=== PATIENT | female | born 1955 | race Caucasian/White ===

== ENCOUNTER 2017-04-16 13:05 | Emergency (ER) | payer MEDICARE, OTHER ==
[~2017-04-16] VITALS: Ht 170.2 cm; Wt 89.0 kg
[~2017-04-16 13:05] MED LIST: ASPI-556 PO; GLIP5TAB11 PO; HYDR25TA PO; METF500T4 PO; PARO10OR3 PO
[2017-04-16] MEDS ORDERED: INSNOV SQ (13:21)
[2017-04-16] MEDS ORDERED: INSLAN SQ (13:21)
[2017-04-16] MEDS ORDERED: SODIUM CHLORIDE 0.9% 1,000 ML IV ONE (14:15)
[2017-04-16] MEDS ORDERED: CEPHALEXIN MONOHYDRATE 500 MG CAPSULE PO ONE (14:45)
[2017-04-16 14:59] LABS: BASOPHILS % (AUTO) 0.5 % (0.0-2.0); EOSINOPHILS % (AUTO) 1.4 % (1.0-6.0); HEMATOCRIT 40.6 % (36-46); LYMPHOCYTES # (AUTO) 3.4 K/uL (1.0-4.8); LYMPHOCYTES % (AUTO) 46.1 % (22.0-44.0); MEAN CORPUSCULAR HGB CONC 34.5 G/dL (31.0-37.0); MEAN CORPUSCULAR VOLUME 90 fL (80-100); MONOCYTES # (AUTO) 0.7 K/uL (0.1-1.0); MONOCYTES % (AUTO) 8.8 % (2.0-9.0); NEUTROPHILS # (AUTO) 3.2 K/uL (1.8-7.7); NEUTROPHILS % (AUTO) 43.2 % (40.0-70.0); PLATELET COUNT (AUTO) 158 K/uL (150-450); RED BLOOD CELL COUNT(AUTO) 4.51 MIL/uL (4.00-5.20); RED CELL DISTRIBUTION WIDTH 15.4 % (11.5-14.5); WHITE BLOOD COUNT (AUTO) 7.5 K/uL (4.5-11.0)
[2017-04-16 15:18] LABS: ANION GAP 6 mmol/L (8-16); CALCIUM, TOTAL 8.7 mg/dL (8.8-10.5); CARBON DIOXIDE 29 mmol/L (22-29); CHLORIDE 96 mmol/L (98-107); CREATININE 0.86 mg/dL (0.60-1.30); GLOMERULAR FILTR. RATE CALC > 60 mL/min (>60); POTASSIUM 4.5 mmol/L (3.5-5.1); SODIUM SERUM 131 mmol/L (136-145); UREA NITROGEN, BLOOD 12 mg/dL (7-18)
[2017-04-16] MEDS ORDERED: INSULIN REGULAR, HUMAN 100 UNITS/ML IVP ONE (16:45)
[2017-04-16 16:50] VITALS: BP 135/90
[2017-04-16 20:34] LABS: GLUCOSE COMMENT 2 Doctor Notified; GLUCOSE,POINT OF CARE 246 MG/DL (70-110)
[2017-04-16 20:34] LABS: GLUCOSE,POINT OF CARE 308 MG/DL (70-110)
[2017-04-17 09:04] LABS: GLUCOSE,POINT OF CARE 415 MG/DL (70-110)
== END 2017-04-16 17:29 | disposition home or self-care (01) ==
LOC: EMS 13:13
DX: L02.414 Cutaneous abscess of left upper limb (principal); E11.65 Type 2 diabetes mellitus with hyperglycemia; I10 Essential (primary) hypertension; F17.210 Nicotine dependence, cigarettes, uncomplicated; Z79.4 Long term (current) use of insulin; Z79.82 Long term (current) use of aspirin
CPT/HCPCS: 36415; 80048; 82962; 85025; 96374; 99285; J1815; J7030; 99284

== ENCOUNTER 2017-05-18 11:17 | Emergency (ER) | payer MEDICARE, OTHER ==
[~2017-05-18] VITALS: Ht 170.2 cm; Wt 86.4 kg
[~2017-05-18 11:17] MED LIST changes: -GLIP5TAB11 PO; +INSLAN SQ; +INSNOV SQ; -METF500T4 PO
[2017-05-18] MEDS ORDERED: ATOR20TA65 PO (11:46)
[2017-05-18] MEDS ORDERED: SITA100 PO (11:46)
[2017-05-18] MEDS ORDERED: LEVO25TA9 PO (11:46)
[2017-05-18] MEDS ORDERED: DULA0.75 SQ (11:46)
[2017-05-18] MEDS ORDERED: SPIR50 PO (11:46)
[2017-05-18 11:53] LABS: GLUCOSE,POINT OF CARE 300 MG/DL (70-110)
[2017-05-18 12:35] VITALS: BP 120/76
[2017-05-18 12:54] LABS: APPEARANCE,URINE CLOUDY (CLEAR); GLUCOSE, URINE (UA) >=1000 mg/dL (NEGATIVE); KETONES,URINE NEGATIVE (NEGATIVE); LEUKOCYTE ESTERASE ,URINE SMALL (NEGATIVE); OCCULT BLOOD,URINE NEGATIVE (NEGATIVE); PROTEIN,URINE TRACE (NEGATIVE)
[2017-05-18] MEDS ORDERED: PARO20TA24 PO (12:59)
[2017-05-18 13:00] LABS: ADD UA MICROSCOPIC YES
[2017-05-18] MEDS ORDERED: SODIUM CHLORIDE 0.9% 1,000 ML IV ONE (13:00)
[2017-05-18 13:02] LABS: RBC,URINE None Seen /HPF (0-2); SQUAMOUS EPITHELIAL CELL,UR Few /LPF (None Seen); WBC,URINE 51-100 /HPF (0-5)
[2017-05-18 13:42] LABS: GLUCOSE,POINT OF CARE 262 MG/DL (70-110)
== END 2017-05-18 14:04 | disposition home or self-care (01) ==
LOC: EMS 11:22
DX: N39.0 Urinary tract infection, site not specified (principal); E11.9 Type 2 diabetes mellitus without complications; I10 Essential (primary) hypertension; E03.9 Hypothyroidism, unspecified; F17.210 Nicotine dependence, cigarettes, uncomplicated
CPT/HCPCS: 82962; 87086; 99284; 99406

== ENCOUNTER 2018-04-18 02:19 | Emergency (ER) | payer MEDICARE, OTHER ==
[~2018-04-18] VITALS: Ht 170.2 cm; Wt 90.0 kg
[~2018-04-18 02:19] MED LIST changes: +ATOR20TA65 PO; +DULA0.75 SQ; +LEVO25TA9 PO; -PARO10OR3 PO; +PARO20TA24 PO; +SITA100 PO; +SPIR50 PO
[2018-04-18 02:34] LABS: GLUCOSE,POINT OF CARE 174 MG/DL (70-110)
[2018-04-18] MEDS ORDERED: OXYB5 PO (02:42)
[2018-04-18] MEDS ORDERED: GABA-531 PO (02:45)
[2018-04-18] MEDS ORDERED: LACT10SO75 PO (02:45)
[2018-04-18] MEDS ORDERED: DULA0.75 SQ (02:45)
[2018-04-18] MEDS ORDERED: AMLO5TAB66 PO (02:45)
[2018-04-18 03:55] LABS: BASOPHILS % (AUTO) 0.5 % (0.0-2.0); EOSINOPHILS % (AUTO) 1.9 % (1.0-6.0); HEMATOCRIT 40.9 % (36-46); HEMOGLOBIN 14.2 g/dL (12.0-16.0); LYMPHOCYTES # (AUTO) 3.8 K/uL (1.0-4.8); LYMPHOCYTES % (AUTO) 43.8 % (22.0-44.0); MEAN CORPUSCULAR HEMOGLOBIN 31.8 pg (26.0-34.0); MEAN CORPUSCULAR HGB CONC 34.8 G/dL (31.0-37.0); MEAN CORPUSCULAR VOLUME 92 fL (80-100); MONOCYTES # (AUTO) 0.8 K/uL (0.1-1.0); MONOCYTES % (AUTO) 9.2 % (2.0-9.0); NEUTROPHILS # (AUTO) 3.9 K/uL (1.8-7.7); NEUTROPHILS % (AUTO) 44.6 % (40.0-70.0); PLATELET COUNT (AUTO) 185 K/uL (150-450); RED BLOOD CELL COUNT(AUTO) 4.46 MIL/uL (4.00-5.20); RED CELL DISTRIBUTION WIDTH 13.5 % (11.5-14.5)
[2018-04-18 04:00] LABS: CALCIUM, TOTAL 9.5 mg/dL (8.8-10.5); CREATININE 0.97 mg/dL (0.60-1.30); POTASSIUM 4.1 mmol/L (3.5-5.1)
[2018-04-18 04:06] LABS: ALBUMIN 3.6 g/dL (3.4-5.0); BILIRUBIN,TOTAL 0.6 mg/dL (0.1-1.0); TOTAL PROTEIN, SERUM 7.7 g/dL (6.4-8.2)
[2018-04-18 04:22] LABS: APPEARANCE,URINE CLOUDY (CLEAR); BILIRUBIN,URINE NEGATIVE (NEGATIVE); GLUCOSE, URINE (UA) NEGATIVE (NEGATIVE); KETONES,URINE NEGATIVE (NEGATIVE); LEUKOCYTE ESTERASE ,URINE SMALL (NEGATIVE); NITRATE,URINE NEGATIVE (NEGATIVE); OCCULT BLOOD,URINE NEGATIVE (NEGATIVE); PROTEIN,URINE NEGATIVE (NEGATIVE)
[2018-04-18 04:32] LABS: BACTERIA,URINE Many /HPF (None Seen); RBC,URINE 0-2 /HPF (0-2); SQUAMOUS EPITHELIAL CELL,UR Many /LPF (None Seen)
[2018-04-18 05:59] VITALS: BP 126/88
[2018-04-18] MEDS ORDERED: CefTRIAXone SODIUM 1 GM in DEXTROSE 5%-WATER 10 ML IV ONE (06:30)
[2018-04-18] MEDS ORDERED: KETOROLAC TROMETHAMINE 30 MG/ML VIAL IVP ONE (06:30)
== END 2018-04-18 06:40 | disposition home or self-care (01) ==
LOC: EMS 02:20
DX: N39.0 Urinary tract infection, site not specified (principal); F32.9 Major depressive disorder, single episode, unspecified; E11.42 Type 2 diabetes mellitus with diabetic polyneuropathy; I10 Essential (primary) hypertension; E03.9 Hypothyroidism, unspecified; F17.210 Nicotine dependence, cigarettes, uncomplicated; Z86.718 Personal history of other venous thrombosis and embolism; Z98.890 Other specified postprocedural states; Z79.4 Long term (current) use of insulin; Z79.899 Other long term (current) drug therapy
CPT/HCPCS: 36415; 71045; 80053; 81001; 82962; 83690; 84484; 85025; 87086; 93005; 96374; 96375; 99285; J0696; J1885; J7060

== ENCOUNTER 2018-09-06 08:26 | Emergency (ER) | payer MEDICARE, OTHER ==
[~2018-09-06] VITALS: Ht 170.2 cm; Wt 91.4 kg
[~2018-09-06 08:26] MED LIST changes: +AMLO5TAB66 PO; -ASPI-556 PO; -ATOR20TA65 PO; +GABA-531 PO; -INSLAN SQ; +LACT10SO75 PO; +OXYB5 PO; -SITA100 PO; -SPIR50 PO
[2018-09-06 08:59] LABS: GLUCOSE,POINT OF CARE 199 MG/DL (70-110)
[2018-09-06] MEDS ORDERED: KETOROLAC TROMETHAMINE 30 MG/ML VIAL IM ONE (09:15)
[2018-09-06 09:51] VITALS: BP 135/81
== END 2018-09-06 09:58 | disposition home or self-care (01) ==
LOC: EMS 08:27
DX: M17.11 Unilateral primary osteoarthritis, right knee (principal); L03.115 Cellulitis of right lower limb; I10 Essential (primary) hypertension; E03.9 Hypothyroidism, unspecified; E11.9 Type 2 diabetes mellitus without complications; F32.9 Major depressive disorder, single episode, unspecified; F17.210 Nicotine dependence, cigarettes, uncomplicated; Z79.4 Long term (current) use of insulin; Z79.899 Other long term (current) drug therapy
CPT/HCPCS: 73562; 82962; 96372; 99283; J1885

== ENCOUNTER 2019-01-17 18:39 | Emergency (ER) | payer MEDICARE, OTHER ==
[~2019-01-17] VITALS: Ht 170.2 cm; Wt 90.0 kg
[2019-01-17 19:12] LABS: BASOPHILS % (AUTO) 0.4 % (0.0-2.0); EOSINOPHILS % (AUTO) 3.5 % (1.0-6.0); HEMATOCRIT 42.2 % (36-46); HEMOGLOBIN 14.1 g/dL (12.0-16.0); LYMPHOCYTES # (AUTO) 2.3 K/uL (1.0-4.8); LYMPHOCYTES % (AUTO) 38.3 % (22.0-44.0); MEAN CORPUSCULAR HEMOGLOBIN 30.9 pg (26.0-34.0); MEAN CORPUSCULAR HGB CONC 33.5 G/dL (31.0-37.0); MEAN CORPUSCULAR VOLUME 92 fL (80-100); MONOCYTES # (AUTO) 0.5 K/uL (0.1-1.0); NEUTROPHILS % (AUTO) 49.8 % (40.0-70.0); PLATELET COUNT (AUTO) 166 K/uL (150-450); RED BLOOD CELL COUNT(AUTO) 4.57 MIL/uL (4.00-5.20); RED CELL DISTRIBUTION WIDTH 13.2 % (11.5-14.5)
[2019-01-17] MEDS ORDERED: MAGNESIUM CITRATE 300 ML ORAL SOLUTION PO ONE (19:15)
[2019-01-17] MEDS ORDERED: BARIUM SULFATE 0.1% SUSPENSION 450 ML BOTTLE PO ONE (19:15)
[2019-01-17 19:48] LABS: ALANINE AMINOTRANSFERASE 26 U/L (12-78); ALBUMIN 3.4 g/dL (3.4-5.0); ALKALINE PHOSPHATASE 133 U/L (46-116); ANION GAP 8 mmol/L (8-16); ASPARTATE AMINOTRANSFERASE 23 U/L (15-37); BILIRUBIN,TOTAL 0.5 mg/dL (0.1-1.0); CALCIUM, TOTAL 9.2 mg/dL (8.8-10.5); CARBON DIOXIDE 26 mmol/L (22-29); CHLORIDE 100 mmol/L (98-107); CREATINE KINASE, TOTAL ONLY 89 U/L (26-192); CREATININE 0.93 mg/dL (0.60-1.30); GLOMERULAR FILTR. RATE CALC > 60 mL/min (>60); GLUCOSE,RANDOM 313 mg/dL (70-110); LIPASE 62 U/L (73-393); POTASSIUM 3.6 mmol/L (3.5-5.1); SODIUM SERUM 134 mmol/L (136-145); TOTAL PROTEIN, SERUM 7.9 g/dL (6.4-8.2)
[2019-01-17 19:57] LABS: UREA NITROGEN, BLOOD 21 mg/dL (7-18)
[2019-01-17 20:00] LABS: AMPHET/METH SCREEN,URINE NEGATIVE (NEGATIVE); BARBITURATE SCREEN, URINE NEGATIVE (NEGATIVE); BENZODIAZEPINES SCREEN,URINE NEGATIVE (NEGATIVE); CANNABINOID SCREEN,URINE NEGATIVE (NEGATIVE); COCAINE SCREEN,URINE NEGATIVE (NEGATIVE); METHADONE SCREEN, URINE POSITIVE (NEGATIVE); OPIATE SCREEN,URINE POSITIVE (NEGATIVE); PHENCYCLIDINE SCREEN,URINE NEGATIVE (NEGATIVE)
[2019-01-17 22:23] VITALS: BP 135/90
== END 2019-01-17 22:26 | disposition home or self-care (01) ==
LOC: EMS 18:41
DX: F11.10 Opioid abuse, uncomplicated (principal); E11.65 Type 2 diabetes mellitus with hyperglycemia; I10 Essential (primary) hypertension; F32.9 Major depressive disorder, single episode, unspecified; N39.0 Urinary tract infection, site not specified; F17.210 Nicotine dependence, cigarettes, uncomplicated; Z86.718 Personal history of other venous thrombosis and embolism; Z79.899 Other long term (current) drug therapy
CPT/HCPCS: 36415; 74176; 80053; 80307; 82550; 83690; 84484; 85025; 99284; 99406; G0480

== ENCOUNTER 2019-12-23 11:02 | Emergency (ER) | payer MEDICARE, OTHER ==
[~2019-12-23] VITALS: Ht 170.2 cm; Wt 89.1 kg
[2019-12-23] MEDS ORDERED: LIDOCAINE 5% TRANSDERMAL PATCH TD ONE (12:30)
[2019-12-23 13:52] VITALS: BP 137/76
== END 2019-12-23 14:02 | disposition home or self-care (01) ==
LOC: EMS 11:13
DX: M13.862 Other specified arthritis, left knee (principal); F17.210 Nicotine dependence, cigarettes, uncomplicated; F32.9 Major depressive disorder, single episode, unspecified; E11.9 Type 2 diabetes mellitus without complications; E78.00 Pure hypercholesterolemia, unspecified; I10 Essential (primary) hypertension; Z79.4 Long term (current) use of insulin

== ENCOUNTER 2021-07-03 11:15 | Emergency (ER) | payer MEDICARE, OTHER ==
[~2021-07-03] VITALS: Ht 170.2 cm; Wt 85.9 kg
[~2021-07-03 11:15] MED LIST changes: -OXYB5 PO; +OXYB5TAB20 PO; +PARO-38 PO; -PARO20TA24 PO
[2021-07-03 11:52] VITALS: BP 113/69
[2021-07-03] MEDS ORDERED: INSU100I15 SQ (12:04)
[2021-07-03] MEDS ORDERED: DULA3PEN SQ (12:04)
[2021-07-03] MEDS ORDERED: FURO20TA4 PO (12:04)
[2021-07-03] MEDS ORDERED: ATOR20TA65 PO (12:04)
[2021-07-03] MEDS ORDERED: BACTDSB PO (12:04)
[2021-07-03] MEDS ORDERED: BREX2TAB PO (12:04)
[2021-07-03] MEDS ORDERED: INSU3INS3 SQ (12:04)
[2021-07-03] MEDS ORDERED: SPIR50TA27 PO (12:04)
[2021-07-03] MEDS ORDERED: PARO30TA60 PO (12:04)
[2021-07-03] MEDS ORDERED: CEPHALEXIN MONOHYDRATE 500 MG CAPSULE PO ONE (13:00)
[2021-07-03] MEDS ORDERED: LIDOCAINE 1% 10 ML VIAL PERC ONE (13:00)
[2021-07-03] MEDS ORDERED: BUPIVACAINE HCL 0.25% 50 ML VIAL PERC ONE (13:00)
[2021-07-03] MEDS ORDERED: BACITRACIN 0.9 GM PACKET OINTMENT TP ONE (13:00)
== END 2021-07-03 15:06 | disposition home or self-care (01) ==
LOC: EMS 11:22
DX: S61.213A Laceration without foreign body of left middle finger without damage to nail, initial encounter (principal); E11.9 Type 2 diabetes mellitus without complications; I10 Essential (primary) hypertension; F17.210 Nicotine dependence, cigarettes, uncomplicated; Z79.4 Long term (current) use of insulin; W06.XXXA Fall from bed, initial encounter; Y93.89 Activity, other specified; Y92.89 Other specified places as the place of occurrence of the external cause; Y99.8 Other external cause status
CPT/HCPCS: 12001; 99283; J3490 ×2

== ENCOUNTER → 2022-07-31 | Outpatient (CLI) | payer MEDICARE, OTHER ==
[~2022-07-31] MED LIST changes: +ATOR20TA65 PO; +BACTDSB PO; +BREX2TAB PO; -DULA0.75 SQ; +DULA3PEN SQ; +FURO20TA4 PO; -GABA-531 PO; -INSNOV SQ; +INSU100I15 SQ; +INSU3INS3 SQ; -OXYB5TAB20 PO; -PARO-38 PO; +PARO30TA60 PO; +SPIR50TA27 PO
== END | disposition home or self-care (01) ==
LOC: RADMN 10:20
PROVIDERS: ATTEND Legal Medicine
DX: M17.12 Unilateral primary osteoarthritis, left knee (principal)
CPT/HCPCS: 73562-TC

== ENCOUNTER 2022-08-12 12:16 | Emergency (ER) | payer MEDICARE, OTHER ==
[~2022-08-12] VITALS: Ht 170.2 cm; Wt 81.4 kg
[2022-08-12] MEDS ORDERED: VANCOMYCIN 1GM/WATER(PEG/NADA) 200 ML IV ONE (15:30)
[2022-08-12 16:40] LABS: BASOPHILS % (AUTO) 0.4 % (0.0-2.0); EOSINOPHILS % (AUTO) 2.3 % (1.0-6.0); HEMATOCRIT 39.8 % (36-46); HEMOGLOBIN 13.4 g/dL (12.0-16.0); LYMPHOCYTES # (AUTO) 2.4 K/uL (1.0-4.8); LYMPHOCYTES % (AUTO) 30.7 % (22.0-44.0); MEAN CORPUSCULAR HEMOGLOBIN 32.5 pg (26.0-34.0); MEAN CORPUSCULAR HGB CONC 33.6 G/dL (31.0-37.0); MEAN CORPUSCULAR VOLUME 97 fL (80-100); MONOCYTES # (AUTO) 0.7 K/uL (0.1-1.0); NEUTROPHILS # (AUTO) 4.5 K/uL (1.8-7.7); NEUTROPHILS % (AUTO) 57.6 % (40.0-70.0); PLATELET COUNT (AUTO) 263 K/uL (150-450); RED BLOOD CELL COUNT(AUTO) 4.13 MIL/uL (4.00-5.20); RED CELL DISTRIBUTION WIDTH 13.6 % (11.5-14.5)
[2022-08-12 17:14] LABS: CALCIUM, TOTAL 9.3 mg/dL (8.8-10.5); CREATININE 0.96 mg/dL (0.60-1.30); POTASSIUM 4.4 mmol/L (3.5-5.1)
[2022-08-12 17:19] LABS: ALBUMIN 3.4 g/dL (3.4-5.0); BILIRUBIN,TOTAL 0.4 mg/dL (0.1-1.0); TOTAL PROTEIN, SERUM 7.9 g/dL (6.4-8.2)
[2022-08-12 17:39] LABS: COVID AG,FIA SOURCE NASAL SWAB
[2022-08-12 19:33] VITALS: BP 140/84
[2022-08-12 19:51] LABS: GLUCOSE,POINT OF CARE 148 MG/DL (70-110)
== END 2022-08-12 19:39 | disposition short-term general hospital (02) ==
LOC: EMS 12:32
DX: L03.116 Cellulitis of left lower limb (principal); E11.9 Type 2 diabetes mellitus without complications; I10 Essential (primary) hypertension; E03.9 Hypothyroidism, unspecified; K74.60 Unspecified cirrhosis of liver; F17.210 Nicotine dependence, cigarettes, uncomplicated; F11.90 Opioid use, unspecified, uncomplicated; Z98.890 Other specified postprocedural states; Z20.822 Contact with and (suspected) exposure to COVID-19
CPT/HCPCS: 99285; 93970; 96365; 71045; 87426; 80053; 82962; 83880; 84484; 85025; 87040; 36415; 73562; 93005; Q9967

== ENCOUNTER 2023-06-20 22:52 | Emergency (ER) | payer MEDICARE, OTHER ==
[~2023-06-20] VITALS: Ht 170.2 cm; Wt 83.0 kg
[~2023-06-20 22:52] MED LIST changes: -AMLO5TAB66 PO; -BACTDSB PO; +CLIN300C58 PO; -FURO20TA4 PO; +GABA-1181 PO; -HYDR25TA PO; +METH5SOL3 PO
[2023-06-20 22:56] VITALS: TEMP 97.8
[2023-06-21] MEDS ORDERED: LIDOCAINE 1% 10 ML VIAL SQ ONE
[2023-06-21 01:47] VITALS: BP 121/67; PULSE 72; RESP 16
== END 2023-06-21 01:52 | disposition home or self-care (01) ==
LOC: EMS 22:53
DX: S01.91XA Laceration without foreign body of unspecified part of head, initial encounter (principal); E11.9 Type 2 diabetes mellitus without complications; I10 Essential (primary) hypertension; E03.9 Hypothyroidism, unspecified; W18.39XA Other fall on same level, initial encounter; Y93.89 Activity, other specified; Y92.89 Other specified places as the place of occurrence of the external cause; Y99.8 Other external cause status
CPT/HCPCS: 99282; 12002; J3490